=== PATIENT | female | born 2000 ===

== ENCOUNTER 2022-07-11 22:43 | Inpatient (IN) | payer BC ==
[2022-07-12 01:23] LABS: CARBON DIOXIDE,CO2 22.7 mmol/L (21.0-32.0)
[2022-07-12] MEDS ORDERED: Sodium Chloride 0.9% 2.5 ML Syringe FLUSH PRN (01:55)
[2022-07-12] MEDS ORDERED: Misoprostol 200 MCG Tab PO PRN (01:55)
[2022-07-12] MEDS ORDERED: Tranexamic Acid 1,000 MG in Sodium Chloride 0.9% 100 ML IV PRN (01:55)
[2022-07-12] MEDS ORDERED: Methylergonovine 0.2 MG/1 ML Amp IM PRN (01:55)
[2022-07-12] MEDS ORDERED: Water For Irrigation,Sterile 1,000 ML Container IRR PRN (01:55)
[2022-07-12] MEDS ORDERED: Carboprost Tromethamine 250 MCG/1 ML Amp IM PRN (01:55)
[2022-07-12] MEDS ORDERED: Sodium Chloride 0.9% 20 ML SDV IV PRN (01:55)
[2022-07-12] MEDS ORDERED: Ondansetron 4 MG/2 ML SDV IVPUSH PRN (01:55)
[2022-07-12] MEDS ORDERED: Sodium Chloride 0.9% 10 ML Syringe FLUSH PRN (01:55)
[2022-07-12] MEDS ORDERED: Lidocaine 1% 50 ML MDV INJECT PRN (01:55)
[2022-07-12] MEDS ORDERED: Terbutaline 1 MG/ML SDV SUBCUT PRN (01:55)
[2022-07-12] MEDS ORDERED: Butorphanol 1 MG/ML SDV IVPUSH PRN (01:55)
[2022-07-12] MEDS ORDERED: Lactated Ringers 1,000 ML IV SCH (02:00)
[2022-07-12] MEDS ORDERED: Oxytocin/0.9 % Sodium Chloride 30 UNIT/500 ML BAG IV SCH ×2 (02:00)
[2022-07-12] MEDS ORDERED: Ampicillin 2 GM in Sodium Chloride 0.9% 100 ML IV ONE (02:30)
[2022-07-12] MEDS ORDERED: Misoprostol 25 MCG (1/4 of 100 MCG) Tab VAG PRN ×2 (02:30→06:30)
[2022-07-12] MEDS ORDERED: Ampicillin 2 GM AdvVial IV ONE ×2 (02:59→03:02)
[2022-07-12] MEDS ORDERED: Sodium Chloride 0.9% 100 ML ONE ×2 (03:00→03:03)
[2022-07-12] MEDS ORDERED: ePHEDrine 50 MG/ML SDV IVPUSH PRN ×4 (06:29→10:42)
[2022-07-12] MEDS ORDERED: Ropivacaine HCl/PF 400 MG in Premix Bag 1 BAG EPIDUR SCH ×2 (06:30→10:45)
[2022-07-12] MEDS ORDERED: Phenylephrine HCl In 0.9% NaCl 1 MG/10 ML Vial IVPUSH SCH ×2 (06:30→10:45)
[2022-07-12] MEDS: Ampicillin 1 GM in Sodium Chloride 0.9% 50 ML IV SCH ×5 (07:05→23:22)
[2022-07-12] MEDS ORDERED: Phenylephrine HCl In 0.9% NaCl 1 MG/10 ML Vial ONE (14:34)
[2022-07-12] MEDS ORDERED: Acetaminophen 500 MG Tab PO ONE ×2 (18:30→19:06)
[2022-07-12] MEDS ORDERED: Acetaminophen 500 MG Tab ONE (18:39)
[2022-07-13] MEDS ORDERED: Bisacodyl 10 MG Supp RECTAL PRN (01:08)
[2022-07-13] MEDS ORDERED: Witch Hazel Medicated Pads 40/Jar TOP PRN (01:08)
[2022-07-13] MEDS ORDERED: Ibuprofen 400 MG Tab PO PRN (01:08)
[2022-07-13] MEDS ORDERED: Lanolin 100% Cream 7 GM Tube TOP PRN (01:08)
[2022-07-13] MEDS ORDERED: Acetaminophen 500 MG Tab PO PRN (01:08)
[2022-07-13] MEDS ORDERED: Benzocaine/Menthol 20%-0.5% Spray 78 GM Cannister TOP PRN (01:08)
[2022-07-13] MEDS ORDERED: Docusate Sodium 100 MG Cap PO PRN (01:08)
[2022-07-13] MEDS ORDERED: Tranexamic Acid 1,000 MG in Sodium Chloride 0.9% 100 ML IV PRN (01:08)
[2022-07-13] MEDS: Ibuprofen 800 MG Tab PO PRN (09:52)
[2022-07-14] MEDS: Acetaminophen 500 MG Tab PO PRN ×2 (09:00→16:10)
[2022-07-15] MEDS: Ibuprofen 800 MG Tab PO PRN (00:09)
== END 2022-07-15 11:30 | disposition home or self-care (01) | DRG 560 ==
LOC: MW.OB 22:43 → MW.OBCHECK 22:43 → MW.OB 07-12 01:56 → MW.OBCHECK 07-12 01:56 → OBSVTOIN 07-13 00:09 → MW.OB 07-13 02:28
PROVIDERS: ADMIT Obstetrics & Gynecology; ATTEND Obstetrics & Gynecology
PROC: 10E0XZZ Delivery of Products of Conception, External Approach (ICD-10-PCS; principal; 2022-07-13)
PROC: 3E0DXGC Introduction of Other Therapeutic Substance into Mouth and Pharynx, External Approach (ICD-10-PCS; 2022-07-13)
PROC: 0UQGXZZ Repair Vagina, External Approach (ICD-10-PCS; 2022-07-13)
PROC: 00HU33Z Insertion of Infusion Device into Spinal Canal, Percutaneous Approach (ICD-10-PCS; 2022-07-13)
PROC: 3E0R3BZ Introduction of Anesthetic Agent into Spinal Canal, Percutaneous Approach (ICD-10-PCS; 2022-07-13)
DX: O13.4 Gestational [pregnancy-induced] hypertension without significant proteinuria, complicating childbirth (principal); Z3A.40 40 weeks gestation of pregnancy; Z37.0 Single live birth; O99.52 Diseases of the respiratory system complicating childbirth; J45.909 Unspecified asthma, uncomplicated; Z79.899 Other long term (current) drug therapy; O99.344 Other mental disorders complicating childbirth; Z20.822 Contact with and (suspected) exposure to COVID-19
CPT/HCPCS: 01967; 36415; 59025; 59409; 80053; 82570; 82803; 84156; 84550; 85014; 85018; 85027; 86592; 86850; 86900; 86901; A9270-GY; J0290; J0595; J2590; J7120; U0002